=== PATIENT | female | born 1995 | race African-American/Black ===

== ENCOUNTER 2016-12-24 22:43 | Emergency (ER) | payer MEDICAID ==
[2015-09-14 04:34] VITALS: BMI 30.5
[~2016-12-24 22:43] MED LIST: HYDROCODONE-APA1 TAB PO; IBUPROFEN600 MG PO
[2016-12-24 23:30] LABS: BASOPHILS 0.5 % (0.0-2.0); EOSINOPHILS 4.5 % (0-7); HEMATOCRIT 32.4 % (36.0-48.0); HEMOGLOBIN 9.7 g/dL (12-16); IMMATURE GRANULOCYTES 0.2 % (0-5); LYMPHOCYTES 14.2 % (15-50); MCH 21.9 pg (26.0-34.0); MCHC 29.9 g/dL (31.0-37.0); MCV 73.1 fL (80.0-100.0); MEAN PLATELET VOLUME 9.9 fL (7.4-10.4); MONOCYTES 10.3 % (2-11); NEUTROPHILS 70.3 % (40-80); PLATELET COUNT 303 10x3/uL (130-400); RBC 4.43 10x6/uL (4.00-5.40); RDW 18.1 % (11.5-14.5); WBC 5.8 10x3/uL (4.8-10.8)
[2016-12-24 23:39] LABS: HCG SERUM NEGATIVE (NEGATIVE)
[2016-12-24 23:40] LABS: APPEARANCE HAZY (CLEAR); BILIRUBIN NEGATIVE (NEGATIVE); COLOR DK YELLOW (YELLOW); GLUCOSE NEGATIVE (NEGATIVE); KETONE SMALL mg/dL (NEGATIVE); LEUKOCYTE ESTERASE NEGATIVE (NEGATIVE); NITRITE NEGATIVE (NEGATIVE); PH 5.5 (5.0-6.0); PROTEIN NEGATIVE (NEGATIVE); UROBILINOGEN NORMAL (NORMAL)
== END 2016-12-25 00:50 | disposition home or self-care (01) ==
LOC: D.ER 22:43
PROVIDERS: Family Medicine
DX: A64 Unspecified sexually transmitted disease (principal); F17.200 Nicotine dependence, unspecified, uncomplicated